=== PATIENT | male | born 1965 | race Caucasian/White ===

== ENCOUNTER 2025-03-07 10:06 | Day surgery (SDC) | payer BC ==
[~2025-03-07] VITALS: Ht 188 cm; Wt 108.7 kg
[2025-03-07] VITALS (9 sets, daily range): BP systolic 133–160; BP diastolic 77–95
[~2025-03-07 10:06] MED LIST: ASCO500 PO; CeFAZolin Sodium 2,000 MG in NS 100 ML IV SCH; HYDROCHLOROTH12.5 MG PO; MULTI-VITAMIN1 EAC2 PO; Vitamin B Comple1 EA PO
[2025-03-07] MEDS ORDERED: Bupivacaine 0.5% W/EPI 1:200000 SDV 30 ML Vial ONE (14:05)
[2025-03-07] MEDS ORDERED: Rocuronium Bromide 10 MG/ML 5ML Injection IV ONE (14:17)
[2025-03-07] MEDS ORDERED: FentaNYL Citrate 50 MCG/ML 2 ML Injection ONE (14:17)
[2025-03-07] MEDS ORDERED: Ondansetron HCl 2 MG / ML 2ML Vial ONE (14:17)
[2025-03-07] MEDS ORDERED: Dexamethasone Sod Phos 10 MG/ML 1ML VIAL ONE (14:17)
[2025-03-07] MEDS ORDERED: Ketorolac Tromethamine 30mg Vial ONE (14:30)
[2025-03-07] MEDS ORDERED: FentaNYL Citrate 50 MCG/ML 2 ML Injection IV PRN ×3 (14:55→15:00)
[2025-03-07] MEDS ORDERED: Ondansetron HCl 2 MG / ML 2ML Vial IV PRN (15:00)
[2025-03-07] MEDS ORDERED: Metoclopramide HCl 5MG / ML 2ML Vial IV PRN (15:00)
[2025-03-07] MEDS ORDERED: HYDROmorphone HCl/Pf 1MG SYR IV PRN (15:00)
[2025-03-07] MEDS ORDERED: Labetalol HCL 5 MG/ML 4ML Injection (Single Dose) IV PRN (15:00)
[2025-03-07] MEDS ORDERED: Sugammadex Sodium 200 MG/2ML SDV (100 MG/ML) ONE (15:16)
--- NOTE | 2025-03-07 16:14 | NUR ---
RN TO OR FOR PACU PULL-THROW, UPON ARRIVAL PT RED, COUGHING INCESSANTLY. CONTINUED TO COUGH DURING TRANSPORT AND UPON ARRIVAL TO PACU. DIFFICULTY OBTAINING VS R/T COUGING. DRESSINGS INTACT, BELLY DISTENDED BUT SOFT. LUNGS CLEAR , QUESTION INTMT WHEEZE OR RHONCI IN POSTERIOR LLL? EYES BLOODSHOT. SMALL CUT LEFT LIP. CO-NURSE ALICE TO BEDSIDE TO ASSIST. VSS. ICE CHIPS PROVIDED, PT ENCOURAGED TO MINIMIZE VOCALIZATIONS TO DECREASE IRRITATION. PT STATES HE HAD "THE FLU" IN JUNE (DENIES DIARRHEA, FEVER/CHILLS, BODY ACHES, ETC) IN JUNE AND HAS HAD PERSISTANT COUGHING EPISODES SINCE THEN. PT IS A FORMER SMOKER (QUIT IN 80S) AND WORK IN [employer]. NO F/U FROM PCP. PT STATES FOR RELIEF HE SUCKS ON SKITTLES AND CHOCOLATE. EDUCATED PT ON ADVOCATING FOR HIMSELF REFERRALS OR F/U FROM PCP. EDUCATED PT ON IMPORTANCE OF SELF-ADVOCACY AND RELEVANCE OF SYMPTOMS. ABDOMINAL BINDER PLACED. VSS, COUGHING LESS FREQUENT. NURSE TRANSPORT TO [facility], BEDSIDE REPORT TO HANNAH ECHEVARRIA.
--- NOTE | 2025-03-07 16:58 | NUR ---
1600: TO STEP POST UMBILICAL HERNIA REPAIR. CLEAR DRESSING WITH BALL WITH SCANT AMT RED DRAINAGE. LATERAL SITES WITH DERMA SMITH CDI. DENIES PAIN, NAUSEA, SOB. PT WITH CHRONIC COUGH SINCE JUNE, BASELINE. STRONG NPC NOTED. SMALL ABRASION TO LOWER LIP NOTED. JAZMIN ICE CHIPS WELL, DENIES NEEDS FOR PAIN MEDICATIONS. PT/FAMILY VERBALIZED UNDERSTANDING OF DC INSTRUCTIONS, FOLLOW UP, MEDICATIONS, WOUND CARE. DC'D IV INTACT. DC'D VIA WC TO PRIVATE CAR WITH GROUP ART SUPERVISOR.
== END 2025-03-07 16:45 | disposition home or self-care (01) ==
LOC: ORSCMMR 10:06 → ORD 11:30 → ORSCMMR 11:30
PROVIDERS: Surgery
PROC: 8E0W4CZ Robotic Assisted Procedure of Trunk Region, Percutaneous Endoscopic Approach (ICD-10-PCS; principal; 2025-03-07 14:00)
PROC: 0WUF4JZ Supplement Abdominal Wall with Synthetic Substitute, Percutaneous Endoscopic Approach (ICD-10-PCS; principal; 2025-03-07 14:00)
PROC: 3E0T3BZ Introduction of Anesthetic Agent into Peripheral Nerves and Plexi, Percutaneous Approach (ICD-10-PCS; principal; 2025-03-07 14:00)
DX: K42.0 Umbilical hernia with obstruction, without gangrene (principal); I10 Essential (primary) hypertension; Z79.899 Other long term (current) drug therapy
CPT/HCPCS: C1781; J0690; J1100; J1885; J2405; J2704; J3010; J7120